=== PATIENT | female | born 1965 | race Caucasian/White ===

== ENCOUNTER 2019-03-17 21:33 | Inpatient (IN) | payer OTHER ==
[~2019-03-17] VITALS: Ht 172.7 cm; Wt 102.1 kg
[2019-03-17 21:36] VITALS: Ht 172.7 cm; Wt 102.1 kg
--- NOTE | 2019-03-17 21:46 | NUR ---
PT BIB [facility] FROM WORK S/P CP EPISODE 90 MIN AGO. PT STATES INITIAL 7/10 PRESSURE TO LT CHEST/BREAST RADIATING TO LT ARM WITH SHARP 9/10 PAIN. PT STATING 3/10 PAIN NOW WITH NITRO GIVEN BY JESE. PT ALSO WITH C/O DIZZINESS AND NAUSEA DURING EPISODE. PT DENIES ANY V/D/C, RESP ILLNESS, FEVER OR URINARY PROBLEMS AT THIS TIME. PT STATES SHE DID TAKE A CAFFEINE TAB FOR ENERGY WHILE AT WORK AT 530PM. PT PLACED ON MONITOR AND EKG DONE BY YARED OJEDA
[2019-03-17 22:32] LABS: BASOPHIL % 0.3 % (0-2); PLATELET COUNT 222 x10^3mcL (130-400); RED CELL DISTRIBUTION WIDTH 13.2 % (11.5-14.5)
--- NOTE | 2019-03-17 22:43 | NUR ---
PT RESTING IN BED WITH NO SIGNS OF DISTRESS.
[2019-03-17 22:54] LABS: ALBUMIN 3.4 g/dL (3.4-5.0); CARBON DIOXIDE 32.2 mmol/L (21-32); CHLORIDE SERUM 106 mmol/L (98-107); CREATININE SERUM 0.9 mg/dL (0.6-1.0); GFR1 > 60 mL/min; GLUCOSE SERUM 96 mg/dL (74-106); SODIUM SERUM 142 mmol/L (136-145); TOTAL PROTEIN, SERUM 7.1 g/dL (6.4-8.2)
[2019-03-17 22:55] LABS: ALKALINE PHOSPHATASE 102 U/L (46-116); ALT/SGPT 29 U/L (14-59); AST/SGOT 14 U/L (15-37); BILIRUBIN TOTAL 0.5 mg/dL (0.20-1.00)
--- NOTE | 2019-03-17 23:09 | NUR ---
PT RESTING IN BED WITH FAMILY AT BEDSIDE WITH NO SIGNS OF DISTRESS.
[2019-03-18] VITALS (8 sets, daily range): BP systolic 84–113; BP diastolic 36–67
--- NOTE | 2019-03-18 00:20 | NUR ---
PT RESTING IN BED WITH EYES CLOSED WITH NO SIGNS OF DISTRESS.
--- NOTE | 2019-03-18 00:51 | NUR ---
REPORT GIVEN TO BRIAN GUERRIER.
[2019-03-18 01:12] LABS: UA SPECIFIC GRAVITY 1.015 (1.005-1.035); microscopic required? YES; urine erythrocyte 1+ (NEGATIVE)
[2019-03-18 01:12] LABS: MAGNESIUM 2.1 mg/dL (1.8-2.4); PHOSPHOROUS 3.3 mg/dL (2.5-4.9)
[2019-03-18 01:13] LABS: CHOLESTEROL/HDL RATIO 3.5
--- NOTE | 2019-03-18 01:31 | NUR ---
RECEIVED PT FROM ED WITH CC LEFT SIDED CHEST PAIN RADIATING TO LEFT ARM WHILE AT WORK. PT IS AAOX4. RESP EVEN AND UNLABORED ON RA. SBR ON TELE # 11, REPORTS 4/10 LEFT SIDED CHEST PRESSURE RADIATING TO LEFT ARM. ALSO REPORTS NAUSEA. LAST BM 03/17/19. VOIDING FREELY. AMBULATORY. IV TO LAC, PT C/O PAIN TO IV SITE. ORIENTED TO ROOM AND SURROUNDINGS. BED IN LOW POSITION, CALL LIGHT WITHIN REACH. ENDORSED TO PRIMARY RN CECY.
--- NOTE | 2019-03-18 01:31 | NUR ---
RECEIVED PT FROM FAREED TORRES. PT A/OX4. DENIES SOB ON RA. NSR ON TELE# 11. IV PATENT. ORIENTED TO ROOM AND SURROUNDINGS. CALL LIGHT WITHIN REACH, BED IN LOW POSITION. WILL CONTINUE TO MONITOR.
[2019-03-18 02:04] LABS: FREE T4 0.95 ng/dL (0.76-1.46); FREE THYROXINE INDEX 2.5 ug/dL (1.4-4.5); T4(THYROXINE) 7.9 ug/dL (4.7-13.3)
[2019-03-18 02:46] LABS: AMPHETAMINE QUAL UR NONE DETECTED (See below)
[2019-03-18 03:12] LABS: T3 TOTAL 1.34 ng/mL
--- NOTE | 2019-03-18 03:31 | NUR ---
PT RESTING IN NO ACUTE DISTRESS. RR EVEN AND UNLABORED. CALL LIGHT WITHIN REACH, BED IN LOW POSITION. WILL CONTINUE TO MONITOR.
[2019-03-18 06:29] LABS: BASOPHIL % 0.5 % (0-2); PLATELET COUNT 216 x10^3mcL (130-400); RED CELL DISTRIBUTION WIDTH 12.9 % (11.5-14.5)
[2019-03-18 06:57] LABS: CALCIUM 8.7 mg/dL (8.5-10.1); CARBON DIOXIDE 31.3 mmol/L (21-32); CHLORIDE SERUM 106 mmol/L (98-107); CREATININE SERUM 0.9 mg/dL (0.6-1.0); GFR1 > 60 mL/min; GLUCOSE SERUM 119 mg/dL (74-106); POTASSIUM SERUM 3.5 mmol/L (3.5-5.1); SODIUM SERUM 143 mmol/L (136-145)
--- NOTE | 2019-03-18 07:20 | NUR ---
RECEIVED PT FROM NOC FAREED SAM. PT FOUND RESTING IN BED WITH BOTH EYES CLOSED. NO S/S OF ACUTE DISTRESS. SINUS MARIA ISABEL ON TELE 11, HR 63. NO CHEST PAIN AT THIS TIME. NO SOB ON ROOM AIR. RR EVEN/UNLABORED. CHEST EXPANSION SYMMETRICAL. IV WNL TO LFA. SALINE LOCKED. CALM/COOPERATIVE. BED IN LOW POSITION. CALL LIGHT WITHIN REACH. WILL CONT. TO MONITOR.
--- NOTE | 2019-03-18 07:53 | NUR ---
BP LOW 86/37 LEFT ARM, 81/[address] SHARPE AWARE. NS BOLUS STARTED. PT COMPLAINT OF LOUISE, 10/10 WITH MILD LEFT CHEST DISCOMFORT. GIVEN PO TYLENOL SEE MAY. /OX LAYING IN BED WATCHING TV/TALKING ON PHONE. NO DIZZINESS. NO SOB ON ROOM AIR. CALM/COOPERATIVE. IV WNL TO LFA, NO REDNESS, NO SWELLING, NO INFILTRATION. PATENT AND FLUSHES WELL. BED IN LOW POSITION. CALL LIGHT WITHIN REACH. WILL CONT. TO MONITOR CLOSELY.
--- NOTE | 2019-03-18 10:23 | NUR ---
BP INCREASING 96/48 AFTER 2L NS BOLUS. C/O CONTINUOUS LOUISE. RATES 8/10. ALREADY GIVEN PO TYLENOL. DR. SHARPE MADE AWARE. AWAITING FURTHER ORDERS. PT AMBULATED TO RESTROOM, GAIT STEADY. DENIES DIZZINESS. NO CHEST PAIN AT THIS TIME. NO SOB. NO S/S OF ACUTE DISTRESS. PT CALM/COOPERATIVE. MOTHER AT BEDSIDE. BED IN LOW POSITION. CALL LIGHT WITHIN REACH. WILL CONTINUE TO MONITOR.
[2019-03-18 12:05] LABS: CARBON DIOXIDE 29.9 mmol/L (21-32); CHLORIDE SERUM 110 mmol/L (98-107); CREATININE SERUM 0.8 mg/dL (0.6-1.0); GFR1 > 60 mL/min; GLUCOSE SERUM 93 mg/dL (74-106); PHOSPHOROUS 3.9 mg/dL (2.5-4.9); POTASSIUM SERUM 3.9 mmol/L (3.5-5.1); SODIUM SERUM 142 mmol/L (136-145)
--- NOTE | 2019-03-18 12:21 | NUR ---
ECHOCARDIOGRAM COMEPLETED.
--- NOTE | 2019-03-18 13:02 | NUR ---
NS BOLUS COMPLETE. PT LAYING IN BED. BP 92/36 (55). DR. SHARPE MADE AWARE. PT AA/OX4. NO S/S OF ACUTE DISTRESS. NO C/O PAIN AT THIS TIME. FALL PREC IN PLACE. IV WNL TO LFA, NO REDNESS, NO SWELLING, NO INFILTRATION. CALM/COOPERATIVE. BED IN LOW POSITION. CALL LIGHT WITHIN REACH. MOTHER AT BEDSIDE. WILL CONT. TO MONITOR.
--- NOTE | 2019-03-18 16:05 | NUR ---
PT C/O OF CONTINUOUS LOUISE, ACHING, WORSE WITH MOVEMENT. GIVEN PO TYLENOL SEE MAR. PT AA/OX4. FOLLOWS COMPLEX COMMANDS. RESPONDS TO VERBAL STIMULI. FACE SYMMETRICAL. SPEECH CLEAR. C/O INTERMITTENT NUMBNESS/TINGLING BUE. BP 90/46 (60). DR. SHARPE AWARE OF NUMBNESS AND BP. NO FURTHER ORDERS AT THIS TIME. PT LAYING IN BED, FOUND RESTING WITH BOTH EYES CLOSED. EASILY AROUSABLE TO VERBAL STIMULI. NO C/O CHEST PAIN AT THIS TIME. RR EVEN/UNLABORED. BED IN LOW POSITION. CALL LIGHT WITHIN REACH. WILL CONT. TO MONITOR.
--- NOTE | 2019-03-18 18:11 | NUR ---
PT C/O CONTINUOUS LOUISE, ACHING, GIVEN TORADOL, SEE MAR. IV WNL TO LFA, PATENT AND FLUSHES WELL. SALINE LOCKED. AA/OX4 LAYING IN BED. NO S/S OF ACUTE DISTRESS. NO SOB ON ROOM AIR. NO C/O CHEST PAIN. NO DIZZINESS. NO N/V. NO FEVER. NO CHILLS. BED IN LOW POSITION. CALL LIGHT WITHIN REACH. WILL ENDORSE TO ONCOMING SHIFT.
--- NOTE | 2019-03-18 20:11 | NUR ---
RECEIVED PT IN BED NO ACUTE DISTRESS NOTED , PT DENY CHESDT PAIN AT THE MOMENT HL PATENT FLUSHING WELL , LUNG SOUNDS CTA , ABD SOFT BS ACTIVE X4, CALL LIGHT WITHIN PT;S REACH WILL CON;T TO MONITOR AND ASSIST PT WITH CARE .
--- NOTE | 2019-03-19 02:07 | NUR ---
PT'S IN BED WITH EYES CLOSWED RESP EVEN .
--- NOTE | 2019-03-19 02:47 | NUR ---
I HAVE REVIEWED THE DATA COLLECTION BY KELSEA (NAME):JENNIFER CARRINGTON ENTERED ON (DATE/TIME):03/18/2019 I CONCUR WITH THE DATA AND ANY EXCEPTIONS OR COMMENTS ARE LISTED BELOW:
[2019-03-19 05:26] VITALS: BP 112/60
--- NOTE | 2019-03-19 06:15 | NUR ---
PT'S IN BED NO ACUTE DISTRESS NOTED, ALL DUE MEDS GIVEN NO REACTION NOTED , HL PATENT , PT;S AWAKE DENY PAIN AT THE MOMENT .
[2019-03-19] MEDS ORDERED: IBU400 M2 PO (06:46)
[2019-03-19 06:55] LABS: BASOPHIL % 0.4 % (0-2); PLATELET COUNT 216 x10^3mcL (130-400); RED CELL DISTRIBUTION WIDTH 13.3 % (11.5-14.5)
--- NOTE | 2019-03-19 07:35 | NUR ---
RECEIVED PATIENT. PATIENT AAOX4. IN BED SLEEPING, EASILY AROUSABLE. NO ACUTE RESP DISTRESS NOTED. NO COMPLAINTS OF PAIN. DENIES CHEST PAIN OR PRESSURE. IV INTACT, NO REDNESS/INFILTRATION NOTED. SAFETY PRECAUTION IN PLACE. CALL LIGHT WIHTIN REACH. WILL CONTINUE TO MONITOR.
[2019-03-19 07:40] LABS: CARBON DIOXIDE 28 mmol/L (21-32); CHLORIDE SERUM 107 mmol/L (98-107); GLUCOSE SERUM 95 mg/dL (74-106); POTASSIUM SERUM 3.9 mmol/L (3.5-5.1); SODIUM SERUM 143 mmol/L (136-145)
[2019-03-19 07:41] LABS: CREATININE SERUM 0.7 mg/dL (0.6-1.0); GFR1 > 60 mL/min; MAGNESIUM 2.1 mg/dL (1.8-2.4); PHOSPHOROUS 3.7 mg/dL (2.5-4.9)
[2019-03-19 07:54] VITALS: BP 105/63
[2019-03-19 08:53] VITALS: BP 105/63
--- NOTE | 2019-03-19 09:10 | NUR ---
DISCHARGE HOME INSTRUCTIONS GIVEN TO PATIENT. PATIENT VERBALIZED UNDERSTANDING. ALL QUESTIONS AND CONCERNS ADDRESSED. D/C IV TO LFA, TOLERATED WELL. CATHETER INTACT. GAUZE AND TAPE IN PLACE. ID BANDS REMOVED. INSTRUCTED TO CALL WHEN READY TO LEAVE THE UNIT.
--- NOTE | 2019-03-19 09:12 | NUR ---
DR. GUERRIER AND DR. SHARPE SEEN SPEAKING WITH PATIENT ABOUT HOME INSTRUCTIONS AND CARE. PATIENT VERBALIZED UNDERSTANDING. PATIENT OK TO PROCEED WITH DISCHARGE.
--- NOTE | 2019-03-19 09:23 | NUR ---
SPOKE WITH DR. SHARPE REGARDING PATIENT REQUEST FOR WORK NOTE. PER. DR. SHARPE, HE WILL MAKE ONE AND GIVE IT TO PATIENT.
--- NOTE | 2019-03-19 09:27 | NUR ---
PATIENT IS BEING DISCHARGED IN STABLE CONDITION. NO DISTRESS NOTED. NO COMPLAINTS OF PAIN. ALL NEEDS MET. ACCOMPANIED TO LOBBY BY MAPPING SPECIALIST.
== END 2019-03-19 09:30 | disposition home or self-care (01) | DRG 198 ==
LOC: ED 21:33 → MU 03-18 00:26 → DU 03-18 00:26 → MU 03-18 01:14
PROVIDERS: Emergency Medicine; ADMIT Internal Medicine
DX: R07.89 Other chest pain (principal); I25.2 Old myocardial infarction; M51.36 Other intervertebral disc degeneration, lumbar region; F17.210 Nicotine dependence, cigarettes, uncomplicated; R00.1 Bradycardia, unspecified; N39.0 Urinary tract infection, site not specified; Z68.33 Body mass index [BMI] 33.0-33.9, adult; Z88.6 Allergy status to analgesic agent; Z83.3 Family history of diabetes mellitus; Z80.9 Family history of malignant neoplasm, unspecified; Z82.49 Family history of ischemic heart disease and other diseases of the circulatory system; Z72.89 Other problems related to lifestyle
CPT/HCPCS: 82962; 83880; 84439; G0378; J1885; J7030; Q0092